=== PATIENT | female | born 1950 | race Caucasian/White ===

== ENCOUNTER 2023-09-11 00:49 | Inpatient (IN) | payer MEDICARE, OTHER ==
[2023-09-11] MEDS ORDERED: DILTIAZEM DRIP BOLUS FROM BAG 1 MG SOLN IV ONE (01:09)
[2023-09-11] MEDS ORDERED: DILTIAZEM 125 MG in SODIUM CHLORIDE 0.9% 100 ML IV SCH (01:15)
[2023-09-11 01:16] LABS: Basophils % (A) 0 %; Eosinophils # (A) 0.2 k/uL (0-0.7); Eosinophils % (A) 1 %; HCT 46.6 % (34.0-46.0); HGB 15.5 gm/dL (11.4-16.0); Lymphocytes # (A) 4.1 k/uL (1.0-4.8); Lymphocytes % (A) 26 %; MCH 34.8 pg (25.0-35.0); MCHC 33.3 g/dL (31.0-37.0); MCV 104.4 fL (80.0-100.0); Macrocytosis Slight; Mean Platelet Volume 7.7; Monocytes % (A) 6 %; Neutrophils % (A) 64 %; Platelet Count 432 k/uL (150-450); RBC 4.46 m/uL (3.80-5.40); RDW 12.2 % (11.5-15.5); WBC 15.7 k/uL (3.8-10.6)
[2023-09-11 01:43] LABS: INR 4.5 (<1.2); Partial Thromboplastin Time 34.5 sec (22.0-30.0); Prothrombin Time 43.8 sec (10.0-12.5)
--- NOTE | 2023-09-11 01:43 | ED ---
General Adult HPI - General Chief complaint: Chest Pain Stated complaint: Afib Time Seen by Provider: 09/11/23 00:51 Source: patient, EMS, RN notes reviewed, old records reviewed Mode of arrival: EMS Limitations: no limitations - History of Present Illness Initial comments: 72-year-old female presents for evaluation of chest pain and palpitations. Mercedes ent has history of atrial fibrillation. She is on metoprolol and Coumadin. She states she's been compliant with these medications. She states that she developed left-sided chest pain which lasted about 5 minutes with associated palpitations. She states that she did feel somewhat diaphoretic at the time. She's been having issues with palpitation and diaphoresis over the past several weeks. No chest pain at the time my evaluation. - Related Data Allergies Allergy/AdvReac Type Severity Reaction Status Date / Time Penicillins Allergy Rash/Hives Verified 09/11/23 00:57 Review of Systems ROS Statement: Those systems with pertinent positive or pertinent negative responses have been documented in the HPI. ROS Other: All systems not noted in ROS Statement are negative. Past Medical History Past Medical History: Atrial Fibrillation, COPD, Hypertension History of Any Multi-Drug Resistant Organisms: None Reported Past Surgical History: Tubal Ligation Past Psychological History: No Psychological Hx Reported Smoking Status: Current every day smoker Past Alcohol Use History: None Reported Past Drug Use History: None Reported General Exam Limitations: no limitations General appearance: alert, in no apparent distress Head exam: Present: atraumatic, normocephalic Eye exam: Present: normal appearance, PERRL Respiratory exam: Present: normal lung sounds bilaterally. Absent: respiratory distress, wheezes Cardiovascular Exam: Present: tachycardia, irregular rhythm GI/Abdominal exam: Present: soft. Absent: distended, tenderness Extremities exam: Present: normal inspection, normal capillary refill Neurological exam: Present: alert, oriented X3 Psychiatric exam: Present: normal affect, normal mood Skin exam: Present: warm Course Vital Signs 09/11/23 09/11/23 00:53 01:29 Temperature 98.5 F Pulse Rate 111 H 135 H Respiratory 20 20 Rate Blood Pressure 140/106 149/104 O2 Sat by Pulse 97 98 Oximetry Medical Decision Making - Medical Decision Making Was pt. sent in by a medical professional or institution (, PA, DIRECTOR OF CARDIAC REHABILITATION, urgent care, hospital, or residential...) When possible be specific @ -No Did you speak to anyone other than the patient for history (EMS, parent, family, police, friend...)? What history was obtained from this source @ -No Did you review nursing and triage notes (agree or disagree)? Why? @ -I reviewed and agree with nursing and triage notes Were old charts reviewed (outside hosp., previous admission, EMS record, old EKG, old radiological studies, urgent care reports/EKG's, residential records)? Report findings @ -No old charts were reviewed Differential Diagnosis (chest pain, altered mental status, abdominal pain women, abdominal pain men, vaginal bleeding, weakness, fever, dyspnea, syncope, headache, dizziness, GI bleed, back pain, seizure, CVA, palpatations, mental health, musculoskeletal)? @ Differential Palpitations Ventricular arrhythmias, atrial arrhythmias, myocardial infarction, anemia, thyrotoxicosis, electrolyte imbalance, hypokalemia, pulmonary embolism, pulmonary disease, drugs, alcohol, anxiety, stress.... This is not meant to be an all-inclusive list. EKG interpreted by me (3pts min.). @Atrial fibrillation with RVR rate of 124, QRS duration 80, QTC 366 low voltage, no ST segment elevation. X-rays interpreted by me (1pt min.). @ Chest x-ray negative for acute cardiopulmonary disease CT interpreted by me (1pt min.). @ -None done U/S interpreted by me (1pt. min.). @ -None done What testing was considered but not performed or refused? (CT, X-rays, U/S, labs)? Why? @ -None What meds were considered but not given or refused? Why? @ -None Did you discuss the management of the patient with other professionals (professionals i.e. , PA, DIRECTOR OF CARDIAC REHABILITATION, lab, RT, psych nurse, social sciences instructor, hotel or motel room service supervisor, teacher, medical corps officer, correctional case records supervisor)? Give summary @ -No Was smoking cessation discussed for >3mins.? @ -No Was critical care preformed (if so, how long)? @ -[ yes35 Were there social determinants of health that impacted care today? How? (Homelessness, low income, unemployed, alcoholism, drug addiction, transportation, low edu. Level, literacy, decrease access to med. care, assisted, rehab)? @ -No Was there de-escalation of care discussed even if they declined (Discuss DNR or withdrawal of care, Hospice)? DNR status @ -No What co-morbidities impacted this encounter? (DM, HTN, Smoking, COPD, CAD, Cancer, CVA, ARF, Chemo, Hep., AIDS, mental health diagnosis, sleep apnea, morbid obesity)? @ -A. fib Was patient admitted / discharged? Hospital course, mention meds given and route, prescriptions, significant lab abnormalities, going to OR and other pert inent info. @ -9-year-old female with history of atrial fibrillation presenting for evaluation of palpitations and an episode of chest pain. Pain resolved prior to arrival. Patient is in atrial fibrillation with RVR. She has a leukocytosis 15 increased secondary to the current steroids that the patient is taking for bronchitis. Chest x-ray is clear at this time. She has normal electrolytes. Negative troponin. Urinalysis has been ordered, results pending. Patient start ed on Cardizem in the emergency department. Her INR is elevated at 4.5, Coumadin will be held. She is admitted to internal medicine with cardiology on consult. Undiagnosed new problem with uncertain prognosis? @ -No Drug Therapy requiring intensive monitoring for toxicity (Heparin, Nitro, Insulin, Cardizem)? @ -No Were any procedures done? @ -No Diagnosis/symptom? @ Atrial fibrillation with RVR Acute, or Chronic, or Acute on Chronic? @ -Acute on chronic Uncomplicated (without systemic symptoms) or Complicated (systemic symptoms)? @ -default Side effects of treatment? @ -No Exacerbation, Progression, or Severe Exacerbation? @ -No Poses a threat to life or bodily function? How? (Chest pain, USA, SD, pneumonia, PE, COPD, DKA, ARF, appy, cholecystitis, CVA, Diverticulitis, Homicidal, Suicidal, threat to staff... and all critical care pts) @ Yes, arrhythmia - Lab Data Result diagrams: 09/11/23 01:06 09/11/23 01:06 Lab Results 09/11/23 09/11/23 09/11/23 Range/Units 01:06 01:06 01:06 WBC 15.7 H (3.8-10.6) k/uL RBC 4.46 (3.80-5.40) m/uL Hgb 15.5 (11.4-16.0) gm/dL Hct 46.6 H (34.0-46.0) % MCV 104.4 H (80.0-100.0) fL MCH 34.8 (25.0-35.0) pg MCHC 33.3 (31.0-37.0) g/dL RDW 12.2 (11.5-15.5) % Plt Count 432 (150-450) k/uL MPV 7.7 Neutrophils % 64 % Lymphocytes % 26 % Monocytes % 6 % Eosinophils % 1 % Basophils % 0 % Neutrophils # 10.0 H (1.3-7.7) k/uL Lymphocytes # 4.1 (1.0-4.8) k/uL Monocytes # 1.0 (0-1.0) k/uL Eosinophils # 0.2 (0-0.7) k/uL Basophils # 0.0 (0-0.2) k/uL Macrocytosis Slight PT 43.8 H (10.0-12.5) sec INR 4.5 H (<1.2) APTT 34.5 H (22.0-30.0) sec Sodium 135 L (137-145) mmol/L Potassium 4.9 (3.5-5.1) mmol/L Chloride 100 (98-107) mmol/L Carbon Dioxide 24 (22-30) mmol/L Anion Gap 11 mmol/L BUN 27 H (7-17) mg/dL Creatinine 0.96 (0.52-1.04) mg/dL Est GFR (CKD-EPI)AfAm 69 (>60 ml/min/1.73 sqM) Est GFR (CKD-EPI)NonAf 60 (>60 ml/min/1.73 sqM) Glucose 107 H (74-99) mg/dL Calcium 9.6 (8.4-10.2) mg/dL Magnesium 1.7 (1.6-2.3) mg/dL Total Bilirubin 0.8 (0.2-1.3) mg/dL AST 23 (14-36) U/L ALT 19 (4-34) U/L Alkaline Phosphatase 103 (38-126) U/L Troponin I (0.000-0.034) ng/mL Total Protein 7.7 (6.3-8.2) g/dL Albumin 4.4 (3.5-5.0) g/dL 09/11/23 Range/Units 01:06 WBC (3.8-10.6) k/uL RBC (3.80-5.40) m/uL Hgb (11.4-16.0) gm/dL Hct (34.0-46.0) % MCV (80.0-100.0) fL MCH (25.0-35.0) pg MCHC (31.0-37.0) g/dL RDW (11.5-15.5) % Plt Count (150-450) k/uL MPV Neutrophils % % Lymphocytes % % Monocytes % % Eosinophils % % Basophils % % Neutrophils # (1.3-7.7) k/uL Lymphocytes # (1.0-4.8) k/uL Monocytes # (0-1.0) k/uL Eosinophils # (0-0.7) k/uL Basophils # (0-0.2) k/uL Macrocytosis PT (10.0-12.5) sec INR (<1.2) APTT (22.0-30.0) sec Sodium (137-145) mmol/L Potassium (3.5-5.1) mmol/L Chloride (98-107) mmol/L Carbon Dioxide (22-30) mmol/L Anion Gap mmol/L BUN (7-17) mg/dL Creatinine (0.52-1.04) mg/dL Est GFR (CKD-EPI)AfAm (>60 ml/min/1.73 sqM) Est GFR (CKD-EPI)NonAf (>60 ml/min/1.73 sqM) Glucose (74-99) mg/dL Calcium (8.4-10.2) mg/dL Magnesium (1.6-2.3) mg/dL Total Bilirubin (0.2-1.3) mg/dL AST (14-36) U/L ALT (4-34) U/L Alkaline Phosphatase (38-126) U/L Troponin I <0.012 (0.000-0.034) ng/mL Total Protein (6.3-8.2) g/dL Albumin (3.5-5.0) g/dL Disposition Clinical Impression: Atrial fibrillation with RVR, Chest pain Disposition: ADMITTED IP TO THIS HOSP Condition: Stable Is patient prescribed a controlled substance at d/c from ED?: No Time of Disposition: 03:08
[2023-09-11 02:52] LABS: ALT 19 U/L (4-34); AST 23 U/L (14-36); African American GFR (CKD) 69 (>60 ml/min/1.73 sqM); Albumin 4.4 g/dL (3.5-5.0); Alkaline Phosphatase 103 U/L (38-126); Anion Gap 11 mmol/L; Blood Urea Nitrogen 27 mg/dL (7-17); Calcium 9.6 mg/dL (8.4-10.2); Carbon Dioxide 24 mmol/L (22-30); Chloride 100 mmol/L (98-107); Glucose 107 mg/dL (74-99); Magnesium 1.7 mg/dL (1.6-2.3); Non-African American GFR(CKD) 60 (>60 ml/min/1.73 sqM); Potassium 4.9 mmol/L (3.5-5.1); Sodium 135 mmol/L (137-145); Total Bilirubin 0.8 mg/dL (0.2-1.3); Total Protein 7.7 g/dL (6.3-8.2)
[2023-09-11] MEDS ORDERED: NALOXONE 0.4 MG/ML 1 ML VIAL IV PRN (02:55)
[2023-09-11] MEDS ORDERED: ACETAMINOPHEN TAB 325 MG TAB PO PRN (02:55)
--- NOTE | 2023-09-11 02:59 | XR ---
EXAM: XR Chest, 2 Views CLINICAL HISTORY: ITS.REASON XR Reason: Chest Pain TECHNIQUE: Frontal and lateral views of the chest. COMPARISON: No relevant prior studies available. FINDINGS: Lungs: No consolidation or mass. Pleural space: No effusion. Heart: No cardiomegaly. Bones/joints: No acute findings. IMPRESSION: No acute cardiopulmonary process.
[2023-09-11 04:42] LABS: Appearance,Urine Clear (Clear); Bilirubin,Urine Negative (Negative); Blood,Urine Negative (Negative); Color,Urine Colorless; Glucose,Urine (UA) Negative (Negative); Ketones,Urine Negative (Negative); Leukocyte Esterase,Urine Negative (Negative); Nitrite,Urine Negative (Negative); PH, Urine 6.5 (5.0-8.0); Protein,Urine Negative (Negative); Specific Gravity,Urine 1.008 (1.001-1.035); Urobilinogen,Urine <2.0 mg/dL (<2.0)
[2023-09-11] MEDS ORDERED: METOPROLOL TARTRATE 12.5 MG TAB PO SCH (09:45)
[2023-09-11] MEDS ORDERED: WARFARIN 7.5 MG TAB PO SCH (09:45)
[2023-09-11] MEDS: CITALOPRAM HYDROBROMIDE 20 MG TAB PO SCH (10:17)
--- NOTE | 2023-09-11 13:07 | P.HPIM ---
History of Present Illness H&P Date: 09/11/23 Chief Complaint: Heart racing This is a pleasant 72-year-old patient follows with Dr. Aguilar. Patient presented yesterday with a heart racing broke out in a certain clammy. Orange anxious. Some shortness of breath. Presented to the ER. Found to be in atrial fibrillation with rapid ventricular rate. Was started on a Cardizem drip. This morning heart rate is better controlled in the 80s. Patient is feeling a bit better. Patient has some underlying wheezing and slight cough. Long-standing smoker. No chest pain. No fever no chills. Patient has known atrial fibril lation. On Coumadin. On Lopressor. Review of systems: GEN.: Tired EYES: None HEENT: None NECK: None RESPIRATORY: Occasional cough wheezing CARDIOVASCULAR: As above GASTROINTESTINAL: None GENITOURINARY: None MUSCULOSKELETAL: Joint pains LYMPHATICS: None HEMATOLOGICAL: None PSYCHIATRY: None NEUROLOGICAL: None Past medical history to include: Atrophic ablation, COPD, hypertension, depression, osteoarthritis Social history: Lives alone. Has been smoking for 55 years. Currently down to about a quarter pack a day. Alcohol rarely. Physical examination: VITAL SIGNS: 98.5, 135, 20, 140/106, 97% room air upon presentation GENERAL: BMI 36.9, declining but awake not in distress. EYES: Pupils equal. Conjunctiva normal. HEENT: External appearance of nose and ears normal, oral cavity grossly normal. NECK: JVD not raised; masses not palpable. HEART: Heart sounds irregular no edema. LUNGS: Respiratory rate increased; his bedsore mild wheezing. ABDOMEN: Soft, nontender, liver spleen not palpable, no masses palpable. PSYCH: Alert and oriented x3; mood and affect normal. MUSCULOSKELETAL:No Clubbing/cyanosis;muscles-grossly intact. OA NEUROLOGICAL: Cranial nerves grossly intact; no facial asymmetry, power and sensation grossly intact. LYMPHATICS: No lymph nodes palpable in the axilla and neck INVESTIGATIONS, reviewed in the clinical context: September 11: White count 15.7 hemoglobin 15.5 platelets 432 INR 4.5 sodium 135 potassium 4.9 BUN 27 creatinine 0.96 Troponin I less than 0.012 TSH 2.3 UA: Negative EKG tracing personally reviewed by me-atrial flutter fibrillation: Rate 124 Chest x-ray film personally reviewed by me-cardiomegaly Assessment and plan: -Persistent atrial fibrillation now presenting with rapid ventricular rate, symptomatic Started IV Cardizem drip. Continue Lopressor. On Coumadin. Telemetry. Cardiology consulted -COPD in a current smoker Albuterol when necessary -Chronic nicotine dependence, cigarette smoker Nicotine patch 7 -Coumadin monitoring Pharmacy to dose -Essential hypertension Lopressor -Depression Celexa -Primary osteoarthritis Tylenol as needed -Full code Care was discussed with the patient. Questions answered. Past Medical History Past Medical History: Atrial Fibrillation, COPD, Hypertension History of Any Multi-Drug Resistant Organisms: None Reported Past Surgical History: Tubal Ligation Past Psychological History: No Psychological Hx Reported Smoking Status: Current every day smoker Past Alcohol Use History: None Reported Past Drug Use History: None Reported Medications and Allergies Home Medications Medication Instructions Recorded Confirmed Type Albuterol Sulfate [Albuterol 1 - 2 puff PO RT-Q6H PRN 09/11/23 09/11/23 History Sulfate Hfa] Citalopram Hydrobromide 20 mg PO DAILY 09/11/23 09/11/23 History [Citalopram HBr] Metoprolol Tartrate [Lopressor] 12.5 mg PO BID 09/11/23 09/11/23 History Rosuvastatin Calcium 10 mg PO HS 09/11/23 09/11/23 History Warfarin Sodium 3.75 mg PO SUMOTUWEFRSA 09/11/23 09/11/23 History lisinopriL [Prinivil] 10 mg PO DAILY 09/11/23 09/11/23 History Allergies Allergy/AdvReac Type Severity Reaction Status Date / Time Penicillins Allergy Rash/Hives/facial Verified 09/11/23 08:00 swelling Physical Exam Vitals: Vital Signs Temp Pulse Resp BP Pulse Ox 09/11/23 07:52 98 F 104 H 16 106/74 95 09/11/23 06:00 78 20 111/75 95 09/11/23 05:30 84 22 115/74 94 L 09/11/23 05:00 89 20 123/96 95 09/11/23 04:30 90 20 127/79 96 09/11/23 04:00 74 20 127/79 95 09/11/23 03:30 81 20 113/76 95 09/11/23 03:00 81 20 109/78 95 09/11/23 02:30 107 H 20 109/78 95 09/11/23 02:00 114 H 20 129/83 95 09/11/23 01:29 135 H 20 149/104 98 09/11/23 00:53 98.5 F 111 H 20 140/106 97 Intake and Output 09/10/23 09/11/23 09/11/23 22:59 06:59 14:59 Other: Weight 97.522 kg Results CBC & Chem 7: 09/11/23 01:06 09/11/23 01:06 Labs: Abnormal Lab Results - Last 24 Hours (Table) 09/11/23 09/11/23 09/11/23 Range/Units 01:06 01:06 01:06 WBC 15.7 H (3.8-10.6) k/uL Hct 46.6 H (34.0-46.0) % MCV 104.4 H (80.0-100.0) fL Neutrophils # 10.0 H (1.3-7.7) k/uL PT 43.8 H (10.0-12.5) sec INR 4.5 H (<1.2) APTT 34.5 H (22.0-30.0) sec Sodium 135 L (137-145) mmol/L BUN 27 H (7-17) mg/dL Glucose 107 H (74-99) mg/dL
[2023-09-11] MEDS: NICOTINE 7MG/24HR PATCH TRANSDERM SCH ×2 (13:35→13:39)
[2023-09-11] MEDS ORDERED: METOPROLOL TARTRATE 12.5 MG TAB PO STA (17:07)
--- NOTE | 2023-09-11 17:10 | P.CRDCN ---
History of Present Illness Consult date: 09/11/23 Consult reason: atrial fibrillation (With RVR) History of present illness: History of present illness: This is a 72 year old female with past medical history of COPD, hypertension, chronic atrial fibrillation, active tobacco use and dependence. She denies history of diabetes. Patient presented to the hospital due to chest pain, sweats and clamminess. She states she was laying in bed with onset. Since that her chest pain has resolved. It was a shooting type pain with no radiation. She gives history of cardiac catheterization 2 years ago with no stent done. This was at [facility]. Patient has been started on Cardizem drip. Heart rate is currently controlled. Blood pressure 126/76. Patient states that she is smoking 6-7 cigarettes per day. EKG A. fib with RVR at 124 bpm Chest x-ray: No acute process WBC 15.7, hemoglobin 15.5, platelet count 432. INR 4.5. Sodium 135, potassium 4.9, BUN 27, creatinine 0.96. Troponin negative 2. Urinalysis negative. TSH 2.38. Home cardiac medications: Lisinopril 10 mg daily, Lopressor 12.5 mg twice daily, rosuvastatin 10 mg at bedtime, Coumadin 3.75 mg daily Review Of Systems: At the time of my evaluation: Constitutional: No fever, no chills. No weakness, fatigue or lethargy. EENT: No headache. No dizziness. Lungs: No shortness of breath, cough, no sputum production. No wheezing. Cardiovascular: No chest pain, no lower extremity edema. No palpitations. No paroxysmal nocturnal dyspnea. No orthopnea. No lightheadedness or dizziness. No syncopal episodes. Abdominal: No abdominal pain. No nausea, vomiting. No diarrhea. No constipation. No bloody or tarry stools. Genitourinary: No dysuria.. No urinary retention. Musculoskeletal: No myalgias. No muscle weakness, no frequent falls. No back pain. No neck pain. Integumentary: No wounds. No rash. No unusual bruising. Neurologic: No aphasia. No facial droop. No change in mentation. No head injury. No headache. Physical examination: Gen: This is a 72-year-old female. She is resting on the ER stretcher and appears to be comfortable and in no acute distress. VS: reviewed HEENT: Head is atraumatic, normocephalic. Pupils equal, round. Sclerae is anicteric. NECK: Supple. No JVD. . LUNGS: Clear to auscultation. No wheezes or rhonchi. No intercostal retractions. HEART: Irregular rate and rhythm. ABDOMEN: Soft No tenderness. EXTREMITIES: No pedal edema. No calf tenderness. NEUROLOGICAL: Patient is awake, alert and oriented x3. Assessment: Chronic atrial fibrillation with RVR Chest pain possibly related to A. fib with RVR COPD Hypertension Active tobacco use and dependence Plan: Continue patient's home cardiac medications Increase Lopressor to 25 mg twice daily Discontinue Cardizem drip Pharmacy to dose Coumadin Complete troponins Obtain cardiac catheterization report from [facility] done 2 years ago Obtain 2-D echocardiogram and Doppler study to assess cardiac structure and function Further recommendations to follow based upon clinical course Thank you kindly for this consultation. Nurse practitioner note has been reviewed, I agree with documented findings and plan of care. Patient was seen and examined. Past Medical History Past Medical History: Atrial Fibrillation, COPD, Hypertension History of Any Multi-Drug Resistant Organisms: None Reported Past Surgical History: Tubal Ligation Past Psychological History: No Psychological Hx Reported Smoking Status: Current every day smoker Past Alcohol Use History: None Reported Past Drug Use History: None Reported Medications and Allergies Home Medications Medication Instructions Recorded Confirmed Type Albuterol Sulfate [Albuterol 1 - 2 puff PO RT-Q6H PRN 09/11/23 09/11/23 History Sulfate Hfa] Citalopram Hydrobromide 20 mg PO DAILY 09/11/23 09/11/23 History [Citalopram HBr] Metoprolol Tartrate [Lopressor] 12.5 mg PO BID 09/11/23 09/11/23 History Rosuvastatin Calcium 10 mg PO HS 09/11/23 09/11/23 History Warfarin Sodium 3.75 mg PO SUMOTUWEFRSA 09/11/23 09/11/23 History lisinopriL [Prinivil] 10 mg PO DAILY 09/11/23 09/11/23 History Allergies Allergy/AdvReac Type Severity Reaction Status Date / Time Penicillins Allergy Rash/Hives/facial Verified 09/11/23 08:00 swelling Physical Exam Vitals: Vital Signs Temp Pulse Resp BP Pulse Ox 09/11/23 13:37 78 16 113/71 96 09/11/23 11:29 64 18 113/74 94 L 09/11/23 10:04 77 16 09/11/23 07:52 98 F 104 H 16 106/74 95 09/11/23 06:00 78 20 111/75 95 09/11/23 05:30 84 22 115/74 94 L 09/11/23 05:00 89 20 123/96 95 09/11/23 04:30 90 20 127/79 96 09/11/23 04:00 74 20 127/79 95 09/11/23 03:30 81 20 113/76 95 09/11/23 03:00 81 20 109/78 95 09/11/23 02:30 107 H 20 109/78 95 09/11/23 02:00 114 H 20 129/83 95 09/11/23 01:29 135 H 20 149/104 98 09/11/23 00:53 98.5 F 111 H 20 140/106 97 Intake and Output 09/10/23 09/11/23 09/11/23 22:59 06:59 14:59 Other: Weight 97.522 kg Results 09/11/23 01:06 09/11/23 01:06 Cardiac Enzymes 09/11/23 09/11/23 Range/Units 01:06 01:06 AST 23 (14-36) U/L Troponin I <0.012 (0.000-0.034) ng/mL Coagulation 09/11/23 Range/Units 01:06 PT 43.8 H (10.0-12.5) sec APTT 34.5 H (22.0-30.0) sec CBC 09/11/23 Range/Units 01:06 WBC 15.7 H (3.8-10.6) k/uL RBC 4.46 (3.80-5.40) m/uL Hgb 15.5 (11.4-16.0) gm/dL Hct 46.6 H (34.0-46.0) % Plt Count 432 (150-450) k/uL Comprehensive Metabolic Panel 09/11/23 Range/Units 01:06 Sodium 135 L (137-145) mmol/L Potassium 4.9 (3.5-5.1) mmol/L Chloride 100 (98-107) mmol/L Carbon Dioxide 24 (22-30) mmol/L BUN 27 H (7-17) mg/dL Creatinine 0.96 (0.52-1.04) mg/dL Glucose 107 H (74-99) mg/dL Calcium 9.6 (8.4-10.2) mg/dL AST 23 (14-36) U/L ALT 19 (4-34) U/L Alkaline Phosphatase 103 (38-126) U/L Total Protein 7.7 (6.3-8.2) g/dL Albumin 4.4 (3.5-5.0) g/dL Current Medications Generic Name Dose Route Start Last Admin Trade Name Freq PRN Reason Stop Dose Admin Acetaminophen 650 mg 09/11/23 02:55 Acetaminophen Tab 325 Mg Tab PO Q6HR PRN Mild Pain or Fever > 100.5 Atorvastatin Calcium 20 mg 09/11/23 21:00 Atorvastatin 20 Mg Tab PO HS LOVE Citalopram Hydrobromide 20 mg 09/11/23 09:45 09/11/23 10:17 Citalopram Hydrobromide 20 Mg Tab PO 20 mg DAILY LOVE Administration Diltiazem HCl 125 mg/ Sodium 125 mls @ 5 mls/hr 09/11/23 01:15 09/11/23 01:26 Chloride IV 5 mg/hr .Q24H LOVE 5 mls/hr Administration 5 MG/HR Metoprolol Tartrate 12.5 mg 09/11/23 09:45 09/11/23 10:17 Metoprolol Tartrate 12.5 Mg Tab PO 12.5 mg BID LOVE Administration Miscellaneous Information 0 each 09/11/23 09:52 Warfarin Per Pharmacy MISCELLANE DIRECTED PRN A FIB Naloxone HCl 0.2 mg 09/11/23 02:55 Naloxone 0.4 Mg/Ml 1 Ml Vial IV Q2M PRN Opioid Reversal Nicotine 1 patch 09/11/23 13:15 09/11/23 13:39 Nicotine 7mg/24hr Patch TRANSDERM Not Given DAILY LOVE Warfarin Sodium 0 mg 09/11/23 18:00 Warfarin 0.5 Mg Tab PO 09/11/23 18:01 ONCE@1800 ONE Intake and Output 09/10/23 09/11/23 09/11/23 22:59 06:59 14:59 Other: Weight 97.522 kg 09/11/23 01:06 09/11/23 01:06
[2023-09-11] MEDS ORDERED: WARFARIN 0.5 MG TAB PO ONE (18:00)
[2023-09-11] MEDS ORDERED: ZINC OXIDE PASTE (Z-GUARD) 1 APPLIC APPLIC TOPICAL PRN (18:46)
[2023-09-11] MEDS ORDERED: ALBUTEROL HFA INHALER INHALATION PRN (19:18)
[2023-09-11] MEDS: METOPROLOL TARTRATE 25 MG TAB PO SCH (20:43)
[2023-09-11] MEDS: ATORVASTATIN 20 MG TAB PO SCH (20:43)
[2023-09-12 08:44] LABS: INR 3.1 (<1.2); Prothrombin Time 30.3 sec (10.0-12.5)
[2023-09-12] MEDS: METOPROLOL TARTRATE 25 MG TAB PO SCH ×2 (09:19→20:20)
[2023-09-12] MEDS: CITALOPRAM HYDROBROMIDE 20 MG TAB PO SCH (09:19)
[2023-09-12] MEDS: NICOTINE 7MG/24HR PATCH TRANSDERM SCH ×2 (09:19→09:21)
--- NOTE | 2023-09-12 11:10 | CA ---
Transthoracic Echo Report Name: Nori Sawant Age: 72 Gender: F : 1950 Exam Date: 09/12/2023 08:31 Exam Location: [place] [facility] Ht (in): 64 Wt (lb): 215 Ordering Physician: Scar Hardy MD Attending/Referring Phys: Wire Rope Sling Maker Caryn Wattesr RDCS Procedure CPT: Indications: atrial fibrillation Cardiac Hx: Technical Quality: Technically difficult study Contrast 1: Definity Total Dose (mL): 1 Contrast 2: Total Dose (mL): MEASUREMENTS (Male / Female) Normal Values 2D ECHO LV Diastolic Diameter PLAX 5.5 cm 4.2 - 5.9 / 3.9 - 5.3 cm LV Systolic Diameter PLAX 3.8 cm IVS Diastolic Thickness 1.1 cm 0.6 - 1.0 / 0.6 - 0.9 cm LVPW Diastolic Thickness 1.1 cm 0.6 - 1.0 / 0.6 - 0.9 cm LV Relative Wall Thickness 0.4 RV Internal Dim ED PLAX 3.5 cm LA Systolic Diameter LX 4.0 cm 3.0 - 4.0 / 2.7 - 3.8 cm LV Diastolic Volume MOD 4C 72.3 cm??? LV Systolic Volume MOD 4C 36.3 cm??? LV Ejection Fraction MOD 4C 49.8 % LV Cardiac Index MOD 4C 1443.7 cm???/min???m??? LV Diastolic Length 4C 6.8 cm LV Systolic Length 4C 5.8 cm LA Volume 69.8 cm??? 18 - 58 / 22 - 52 cm??? LA Volume Index 32.5 cm???/m??? 16 - 28 cm???/m??? M-MODE Aortic Root Diameter MM 2.9 cm MV E Point Septal Separation 0.9 cm AV Cusp Separation MM 1.8 cm DOPPLER AV Peak Velocity 108.5 cm/s AV Peak Gradient 4.7 mmHg MV Area PHT 5.4 cm??? MV Deceleration Time 165.4 ms TR Peak Velocity 257.5 cm/s TR Peak Gradient 26.5 mmHg Right Ventricular Systolic Press 31.5 mmHg FINDINGS Left Ventricle Left ventricular ejection fraction is estimated at 35-40 %. Mildly increased septal wall thickness. Mildly increased posterior wall thickness. Mildly increased left ventricular diastolic diameter. Right Ventricle Mild right ventricular dilatation. Right ventricular systolic pressure within normal limits. Right Atrium Right atrium not well visualized. Left Atrium Mildly increased left atrial diameter. Mildly increased left atrial volume. Mildly increased left atrial area. Mitral Valve No mitral stenosis, regurgitation or prolapse. Aortic Valve Trileaflet aortic valve. No aortic valve stenosis or regurgitation. Tricuspid Valve Structurally normal tricuspid valve. Mild tricuspid regurgitation. Pulmonic Valve Pulmonic valve not well visualized. Pericardium Small pericardial effusion by apex Aorta Normal size aortic root and proximal ascending aorta. CONCLUSIONS Moderate LV systolic dysfunction with an ejection fraction of 35-40% Mild tricuspid regurgitation Small pericardial effusion Previewed by: Dr. Giovanny Serna MD (Electronically Signed) Final Date: 12 September 2023 11:09
[2023-09-12] MEDS ORDERED: NITROGLYCERIN SL TABS 0.4 MG TAB SUBLINGUAL PRN (14:29)
[2023-09-12] MEDS ORDERED: ALPRAZolam 0.25 MG TAB PO PRN (14:29)
[2023-09-12] MEDS ORDERED: ALPRAZolam 0.5 MG TAB PO PRN (14:29)
--- NOTE | 2023-09-12 14:35 | P.PN ---
Subjective Progress Note Date: 09/12/23 History of present illness: This is a 72 year old female with past medical history of COPD, hypertension, chronic atrial fibrillation, active tobacco use and dependence. She denies history of diabetes. Patient presented to the hospital due to chest pain, sweats and clamminess. She states she was laying in bed with onset. Since that her chest pain has resolved. It was a shooting type pain with no radiation. She gives history of cardiac catheterization 2 years ago with no stent done. This was at [facility]. Patient has been started on Cardizem drip. Heart rate is currently controlled. Blood pressure 126/76. Patient states that she is smoking 6-7 cigarettes per day. EKG A. fib with RVR at 124 bpm Chest x-ray: No acute process WBC 15.7, hemoglobin 15.5, platelet count 432. INR 4.5. Sodium 135, potassium 4.9, BUN 27, creatinine 0.96. Troponin negative 2. Urinalysis negative. TSH 2.38. Home cardiac medications: Lisinopril 10 mg daily, Lopressor 12.5 mg twice daily, rosuvastatin 10 mg at bedtime, Coumadin 3.75 mg daily 09/12 Reviewed records from [facility]: Echocardiogram performed to revealed EF of 55-60% She states that she had some shooting pain in her chest last evening. None at this time. No shortness of breath, no lightheadedness or dizziness. Echocardiogram reveals EF of 35-40%, mild tricuspid regurgitation, small pericardial effusion. Blood pressure 118/68, afebrile, heart rate 70s and 80s. INR is 3.1, pharmacy is dosing Coumadin. Due to new cardiomyopathy, patient is agreeable to undergo cardiac catheterization tomorrow. Physical examination: Gen: This is a 72-year-old female. She is resting in bed and appears to be comfortable and in no acute distress. VS: reviewed HEENT: Head is atraumatic, normocephalic. Pupils equal, round. Sclerae is anicteric. LUNGS: Clear to auscultation. No wheezes or rhonchi. No intercostal retractions. HEART: Irregular rate and rhythm. ABDOMEN: Soft No tenderness. EXTREMITIES: No pedal edema. No calf tenderness. NEUROLOGICAL: Patient is awake, alert and oriented x3. Assessment: Chronic atrial fibrillation with RVR Chest pain possibly related to A. fib with RVR COPD Hypertension Active tobacco use and dependence Cardiomyopathy of unclear etiology Plan: Continue patient's home cardiac medications Continue Lopressor to 25 mg twice daily Hold Coumadin for tonight Recheck INR in the morning Nothing by mouth after midnight Patient will be scheduled for cardiac catheterization tomorrow with Dr. Irvin Further recommendations to follow based upon clinical course Thank you kindly for this consultation. Nurse practitioner note has been reviewed, I agree with documented findings and plan of care. Patient was seen and examined. Objective - Vital Signs Vital signs: Vital Signs Temp 98.5 F 09/12/23 04:00 Pulse 87 09/12/23 04:00 Resp 17 09/12/23 04:00 BP 102/63 09/12/23 04:00 Pulse Ox 100 09/12/23 04:00 FiO2 Intake & Output 09/11/23 09/12/23 09/12/23 18:59 06:59 18:59 Intake Total 80.417 0 118 Balance 80.417 0 118 Weight 97.522 kg Intake: Intake, IV Titration 80.417 Amount Diltiazem 125 mg In 80.417 Sodium Chloride 0.9% 100 ml @ 5 MG/HR 5 mls/hr IV .Q24H [facility] Rx#:[id number] Oral 0 118 Other: Voiding Method Toilet # Voids 1 - Labs CBC & Chem 7: 09/11/23 01:06 09/11/23 01:06 Labs: Abnormal Lab Results - Last 24 Hours (Table) 09/12/23 Range/Units 07:57 PT 30.3 H (10.0-12.5) sec INR 3.1 H (<1.2)
--- NOTE | 2023-09-12 15:04 | P.PN ---
Subjective Progress Note Date: 09/12/23 This is a pleasant 72-year-old patient follows with Dr. Aguilar. Patient presented yesterday with a heart racing broke out in a certain clammy. [place] anxious. Some shortness of breath. Presented to the ER. Found to be in atrial fibrillation with rapid ventricular rate. Was started on a Cardizem drip. This morning heart rate is better controlled in the 80s. Patient is feeling a bit better. Patient has some underlying wheezing and slight cough. Long-standing smoker. No chest pain. No fever no chills. Patient has known atrial fibrillation. On Coumadin. On Lopressor. 09/12/2023 Patient today continues to have intermittent episodes of chest pain sharp on the left side, no radiation and does spontaneously resolve. Then feels clammy and sweaty afterwards. In atrial fibrillation. Reports received from cardiac catheterization back in 2017 out of [facility] which reveals an EF 50% and minimal atherosclerotic disease. Echocardiogram f/u this admission reveals an EF of 35-40% with mild TR and small pericardial effusion. INR of 3.1 today. Troponin level negative x 3. Pending cardiology recommendations Review of Systems Constitutional: Denied any fatigue denied any fever. Cardio vascular: Intermittent left sided chest pain, palpitations Gastrointestinal: Denied any nausea, vomiting, diarrhea Pulmonary: Denied any shortness of breath cough Neurologic denied any new focal deficits All inpatient medications were reviewed and appropriate changes in these medications as dictated in the interval history and assessment and plan. PHYSICAL EXAMINATION: GENERAL: The patient is alert and oriented x3, not in any acute distress. Well developed, well nourished. HEENT: Pupils are round and equally reacting to light. EOMI. No scleral icterus. No conjunctival pallor. Normocephalic, atraumatic. No pharyngeal erythema. No thyromegaly. CARDIOVASCULAR: S1 and S2 present. No murmurs, rubs, or gallops. PULMONARY: Chest is clear to auscultation, no wheezing or crackles. ABDOMEN: Soft, nontender, nondistended, normoactive bowel sounds. No palpable organomegaly. MUSCULOSKELETAL: No joint swelling or deformity. EXTREMITIES: No cyanosis, clubbing, or pedal edema. NEUROLOGICAL: Gross neurological examination did not reveal any focal deficits. SKIN: No rashes. Assessment -Persistent atrial fibrillation with RVR, off cardizem gtt and on oral lopression -COPD Hx -Cardiomyopathy of unclear etiology -Chronic nicotine dependence, cigarette smoker -Coumadin monitoring -Essential hypertension -Depression -Primary osteoarthritis -Full code GI prophylaxis DVT prophylaxis Full Code Plan Continue on warfarin, daily PT/INR Pending cardiology recommendations Patient likely will need cardiac catheterization The impression and plan of care has been dictated by Val Raymond, Nurse Practitioner as directed. Dr. Raz MD I have performed a history and physical examination and medical decision making of this patient, discussed the same with the dictator, and agree with the dictators assessment and plan as written, documented as a scribe. Based on total visit time, I have performed more than 50% of this visit. Objective - Vital Signs Vital signs: Vital Signs Temp 98.5 F 09/12/23 04:00 Pulse 87 09/12/23 04:00 Resp 17 09/12/23 04:00 BP 102/63 09/12/23 04:00 Pulse Ox 100 09/12/23 04:00 FiO2 Intake & Output 09/11/23 09/12/23 09/12/23 18:59 06:59 18:59 Intake Total 80.417 0 118 Balance 80.417 0 118 Weight 97.522 kg Intake: Intake, IV Titration 80.417 Amount Diltiazem 125 mg In 80.417 Sodium Chloride 0.9% 100 ml @ 5 MG/HR 5 mls/hr IV .Q24H [facility] Rx#:[id number] Oral 0 118 Other: Voiding Method Toilet # Voids 1 - Labs CBC & Chem 7: 09/11/23 01:06 09/11/23 01:06 Labs: Abnormal Lab Results - Last 24 Hours (Table) 09/12/23 Range/Units 07:57 PT 30.3 H (10.0-12.5) sec INR 3.1 H (<1.2) Assessment and Plan Time with Patient: Less than 30
[2023-09-12] MEDS ORDERED: WARFARIN 1 MG TAB PO ONE (18:00)
[2023-09-12] MEDS: ATORVASTATIN 20 MG TAB PO SCH (20:20)
[2023-09-13] MEDS ORDERED: ATORVASTATIN 80 MG TAB PO ONE (06:00)
[2023-09-13] MEDS ORDERED: ASPIRIN 325 MG TAB PO ONE (06:00)
[2023-09-13] MEDS: CITALOPRAM HYDROBROMIDE 20 MG TAB PO SCH (06:18)
[2023-09-13] MEDS: METOPROLOL TARTRATE 25 MG TAB PO SCH ×2 (06:19→20:09)
[2023-09-13 06:55] LABS: Basophils % (A) 0 %; Eosinophils # (A) 0.4 k/uL (0-0.7); Eosinophils % (A) 5 %; HCT 43.9 % (34.0-46.0); HGB 14.4 gm/dL (11.4-16.0); Lymphocytes # (A) 3.1 k/uL (1.0-4.8); Lymphocytes % (A) 36 %; MCH 34.2 pg (25.0-35.0); MCHC 32.8 g/dL (31.0-37.0); MCV 104.3 fL (80.0-100.0); Macrocytosis Slight; Mean Platelet Volume 7.5; Monocytes # (A) 0.6 k/uL (0-1.0); Monocytes % (A) 7 %; Neutrophils # (A) 4.4 k/uL (1.3-7.7); Neutrophils % (A) 50 %; Platelet Count 389 k/uL (150-450); RBC 4.21 m/uL (3.80-5.40); WBC 8.8 k/uL (3.8-10.6)
[2023-09-13] MEDS ORDERED: HEPARIN SODIUM,PORCINE 10,000 UNIT in SODIUM CHLORIDE 0.9% 1,000 ML IRRIGATION PRN (07:00)
[2023-09-13] MEDS ORDERED: HEPARIN SODIUM,PORCINE (1 ML) 2,500 UNIT in SODIUM CHLORIDE 0.9% 250 ML IRRIGATION PRN (07:00)
[2023-09-13 07:11] LABS: African American GFR (CKD) 73 (>60 ml/min/1.73 sqM); Anion Gap 9 mmol/L; Blood Urea Nitrogen 25 mg/dL (7-17); Calcium 8.9 mg/dL (8.4-10.2); Carbon Dioxide 25 mmol/L (22-30); Chloride 103 mmol/L (98-107); Glucose 99 mg/dL (74-99); Non-African American GFR(CKD) 64 (>60 ml/min/1.73 sqM); Potassium 4.6 mmol/L (3.5-5.1); Sodium 137 mmol/L (137-145)
--- NOTE | 2023-09-13 07:19 | P.PN ---
Subjective Progress Note Date: 09/13/23 Principal diagnosis: Atrial fibrillation/cardiomyopathy The patient is a pleasant 72-year-old female patient with a past medical history significant for permanent atrial fibrillation and chronic obstructive pulmonary disease as well as multiple comorbid conditions including recently diagnosed cardiomyopathy was admitted to the hospital with a chest discomfort and underwent a workup including an echo and that revealed cardiomyopathy which is new to the patient. September [id number] She was seen and evaluated this morning. She is asymptomatic at this point. The plan is to proceed with coronary angiogram to rule out severe underlying coronary artery disease. INR still pending. She was on Coumadin and the INR yesterday was intubated. We'll follow-up with the INR and procedures coronary angiogram if the INR is low. The examination is remarkable for irregular rhythm with a clear breathing sounds bilaterally and no lower extremities edema noted Assessment Permanent atrial fibrillation with controlled heart rate New diagnosis of cardiomyopathy Multiple comorbid conditions Plan Follow-up with the INR Proceed with coronary angiogram Further recommendation to follow Objective - Vital Signs Vital signs: Vital Signs Temp 98.0 F 09/12/23 16:00 Pulse 82 09/13/23 04:00 Resp 18 09/13/23 04:00 BP 112/62 09/13/23 04:00 Pulse Ox 96 09/13/23 04:00 FiO2 Intake & Output 09/12/23 09/13/23 09/13/23 18:59 06:59 18:59 Intake Total 236 Balance 236 Intake: Oral 236 Other: Voiding Method Toilet Toilet # Voids 5 1 # Bowel Movements 1 - Labs CBC & Chem 7: 09/13/23 06:25 09/13/23 06:25 Labs: Abnormal Lab Results - Last 24 Hours (Table) 09/12/23 09/13/23 09/13/23 Range/Units 07:57 06:25 06:25 MCV 104.3 H (80.0-100.0) fL PT 30.3 H (10.0-12.5) sec INR 3.1 H (<1.2) BUN 25 H (7-17) mg/dL
[2023-09-13 07:22] LABS: INR 1.9 (<1.2); Prothrombin Time 18.7 sec (10.0-12.5)
[2023-09-13] MEDS ORDERED: PHYTONADIONE ORAL 5 MG/5 ML ORAL.SYRG PO STA (08:06)
[2023-09-13] MEDS: NICOTINE 7MG/24HR PATCH TRANSDERM SCH (08:28)
[2023-09-13 10:07] LABS: INR 1.8 (<1.2); Prothrombin Time 18.2 sec (10.0-12.5)
[2023-09-13] MEDS ORDERED: VERAPAMIL 2.5 MG/ML 2 ML AMP ONE (11:54)
[2023-09-13] MEDS ORDERED: HEPARIN SODIUM 1,000 UN/ML (10ML VL) ONE (13:00)
[2023-09-13] MEDS ORDERED: MIDAZOLAM 2 MG/2 ML VIAL IVP ONE (13:06)
[2023-09-13] MEDS ORDERED: IV FLUID CONTINUATION 1,000 ML IV ONE (13:07)
[2023-09-13] MEDS ORDERED: LIDOCAINE 1% INJ 10MG/ML (30 ML VIAL-PF) SQ ONE (13:10)
[2023-09-13] MEDS ORDERED: VERAPAMIL SYRINGE (5 MG/10 ML) INTRAARTER ONE (13:11)
[2023-09-13] MEDS ORDERED: IOPAMIDOL-370 100ML BTL INJ ONE (13:19)
[2023-09-13] MEDS ORDERED: RX INFO: IV CONTRAST WAS GIVEN 1 EACH MISC MISCELLANE PRN (13:20)
--- NOTE | 2023-09-13 13:23 | P.PCN ---
Date of Procedure: 09/13/23 Operative Findings: CARDIAC CATHETERIZATION PERFORMING PHYSICIAN: Cruzito Irvin MD, RPVI PROCEDURE PERFORMED: 1. Selective right and left coronary angiogram 2. Left heart catheterization 3. Ultrasound-guided access of the right radial artery INDICATION: Cardiomyopathy COMPLICATION: None APPROACH: Right radial artery LEVEL OF SEDATION: Moderate with a sedation length of 8 minutes PROCEDURE DESCRIPTION: After obtaining an informed consent, the patient was brought to cardiac woods laborer. Local anesthesia was performed using lidocaine subcutaneously. The right radial artery was cannulated using Seldinger technique, the guidewire passed easily, following that we advanced a 5-Macanese sheath dilator assembly, the wire and dilator were removed and sheath was flushed. Following that, 2 mg of verapamil along with 5000 unit heparin were given. Selective right and left coronary angiogram using a 6-Macanese JR4 and JL 3.5 catheters. Following that we did left heart catheterization using 6-Macanese pigtail catheter. The procedure was completed there was no complication. SELECTIVE CORONARY ANGIOGRAM: The right coronary artery: Large caliber vessel and dominant vessel was mild disease only Left main: Has mild disease only The left circumflex: Large caliber vessel and nondominant vessel. The LCx is chronically occluded in the AV groove after an OM which appears to be normal The left anterior descending artery: Large caliber vessel was mild disease only and gives rises into the first and second diagonal branches both appeared to be angiographically normal HEMODYNAMICS: The LVEDP was 7 mmHg was no significant gradient across aortic valve CONCLUSION: 1. 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 Normal left-sided filling pressure POSTPROCEDURE MANAGEMENT: Medical treatment
[2023-09-13] MEDS ORDERED: SODIUM CHLORIDE 0.9% 1,000 ML IV SCH (13:30)
--- NOTE | 2023-09-13 14:52 | P.PN ---
Subjective Progress Note Date: 09/13/23 This is a pleasant 72-year-old patient follows with Dr. Aguilar. Patient presented yesterday with a heart racing broke out in a certain clammy. [place] anxious. Some shortness of breath. Presented to the ER. Found to be in atrial fibrillation with rapid ventricular rate. Was started on a Cardizem drip. This morning heart rate is better controlled in the 80s. Patient is feeling a bit better. Patient has some underlying wheezing and slight cough. Long-standing smoker. No chest pain. No fever no chills. Patient has known atrial fibrillation. On Coumadin. On Lopressor. 09/12/2023 Patient today continues to have intermittent episodes of chest pain sharp on the left side, no radiation and does spontaneously resolve. Then feels clammy and sweaty afterwards. In atrial fibrillation. Reports received from cardiac catheterization back in 2017 out of [facility] which reveals an EF 50% and minimal atherosclerotic disease. Echocardiogram f/u this admission reveals an EF of 35-40% with mild TR and small pericardial effusion. INR of 3.1 today. Troponin level negative x 3. Pending cardiology recommendations 09/13/2023 Patient underwent cardiac catheterization today which reveals chronic total occlusion of the small left circumflex in the AV groove and normal left sided filling pressures. Patient will be managed with medications. Denies any further episodes of chest pain or palpitations. Had on episode of feeling sweaty and clammy overnight. Heart rate remains controlled. Review of Systems Constitutional: Denied any fatigue denied any fever. Cardio vascular: Intermittent left sided chest pain, palpitations Gastrointestinal: Denied any nausea, vomiting, diarrhea Pulmonary: Denied any shortness of breath cough Neurologic denied any new focal deficits All inpatient medications were reviewed and appropriate changes in these medications as dictated in the interval history and assessment and plan. PHYSICAL EXAMINATION: GENERAL: The patient is alert and oriented x3, not in any acute distress. Well developed, well nourished. HEENT: Pupils are round and equally reacting to light. EOMI. No scleral icterus. No conjunctival pallor. Normocephalic, atraumatic. No pharyngeal erythema. No thyromegaly. CARDIOVASCULAR: S1 and S2 present. No murmurs, rubs, or gallops. PULMONARY: Chest is clear to auscultation, no wheezing or crackles. ABDOMEN: Soft, nontender, nondistended, normoactive bowel sounds. No palpable organomegaly. MUSCULOSKELETAL: No joint swelling or deformity. EXTREMITIES: No cyanosis, clubbing, or pedal edema. NEUROLOGICAL: Gross neurological examination did not reveal any focal deficits. SKIN: No rashes. Assessment -Persistent atrial fibrillation with RVR, off cardizem gtt and on oral lopressor -Coronary artery disease with chronic RCA occlusion will be managed medically -COPD Hx -Cardiomyopathy of unclear etiology -Chronic nicotine dependence, cigarette smoker -Coumadin monitoring -Essential hypertension -Depression -Primary osteoarthritis -Full code GI prophylaxis DVT prophylaxis Full Code Plan Continue on warfarin, daily PT/INR; patient was given vitamin K today in order to go for cardiac cathteterization INR now 1.8 Resume lisinopril and metoprolol was also increased Patient will be continued on statin therapy Smoking cessation reinforced and patient continues with nicotine patch Possible D/C home today or tomorrow pending cardiac clearance Patient needs to follow up with PCP and her known tax compliance officer out of [facility]. Recommending to Repeat INR in 2 days outpatient. The impression and plan of care has been dictated by Val Raymond, Nurse Practitioner as directed. Dr. Raz MD I have performed a history and physical examination and medical decision making of this patient, discussed the same with the dictator, and agree with the dictators assessment and plan as written, documented as a scribe. Based on total visit time, I have performed more than 50% of this visit. Objective - Vital Signs Vital signs: Vital Signs Temp 98.7 F 09/13/23 08:00 Pulse 78 09/13/23 08:00 Resp 17 09/13/23 08:00 BP 110/62 09/13/23 08:00 Pulse Ox 96 09/13/23 08:00 FiO2 Intake & Output 09/12/23 09/13/23 09/13/23 18:59 06:59 18:59 Intake Total 236 50 Balance 236 50 Intake: IV 50 Oral 236 Other: Voiding Method Toilet Toilet Toilet # Voids 5 1 4 # Bowel Movements 1 - Labs CBC & Chem 7: 09/13/23 06:25 09/13/23 06:25 Labs: Abnormal Lab Results - Last 24 Hours (Table) 09/13/23 09/13/23 09/13/23 Range/Units 06:25 06:25 06:25 MCV 104.3 H (80.0-100.0) fL PT 18.7 H (10.0-12.5) sec INR 1.9 H (<1.2) BUN 25 H (7-17) mg/dL 09/13/23 Range/Units 08:56 MCV (80.0-100.0) fL PT 18.2 H (10.0-12.5) sec INR 1.8 H (<1.2) BUN (7-17) mg/dL Assessment and Plan Time with Patient: Less than 30
[2023-09-13 18:40] VITALS: RESP 18
[2023-09-13] MEDS ORDERED: WARFARIN 3 MG TAB PO ONE (20:00)
[2023-09-13] MEDS: ATORVASTATIN 20 MG TAB PO SCH (20:09)
[2023-09-14 07:48] LABS: INR 1.4 (<1.2); Prothrombin Time 14.4 sec (10.0-12.5)
[2023-09-14] MEDS: NICOTINE 7MG/24HR PATCH TRANSDERM SCH (07:59)
[2023-09-14] MEDS: CITALOPRAM HYDROBROMIDE 20 MG TAB PO SCH (08:01)
[2023-09-14] MEDS: METOPROLOL TARTRATE 25 MG TAB PO SCH (08:01)
[2023-09-14 08:16] VITALS: BP 142/62; PULSE 74; TEMP 98.4
[2023-09-14] MEDS ORDERED: lisinopriL 10 MG TAB PO SCH (09:00)
--- NOTE | 2023-09-14 09:16 | P.PN ---
Subjective Progress Note Date: 09/14/23 Principal diagnosis: Atrial fibrillation/cardiomyopathy The patient is a pleasant 72-year-old female patient with a past medical history significant for permanent atrial fibrillation and chronic obstructive pulmonary disease as well as multiple comorbid conditions including recently diagnosed cardiomyopathy was admitted to the hospital with a chest discomfort and underwent a workup including an echo and that revealed cardiomyopathy which is new to the patient. September [id number] She was seen and evaluated this morning. She is asymptomatic at this point. The plan is to proceed with coronary angiogram to rule out severe underlying coronary artery disease. INR still pending. She was on Coumadin and the INR yesterday was intubated. We'll follow-up with the INR and procedures coronary angiogram if the INR is low. The examination is remarkable for irregular rhythm with a clear breathing sounds bilaterally and no lower extremities edema noted 09/14/2023 The patient was seen and evaluated this morning. She underwent heart catheterization yesterday and that revealed normal coronaries was normal left- sided filling pressure. She is feeling better this morning. No pain in the chest and no shortness of breath. The cardiomyopathy is nonischemic and likely related to atrial fibrillation. She is on anticoagulation and she is on beta lola and she is also on lisinopril. From the cardiovascular standpoint of view, the patient potentially can be discharged home in the next 12-24 hours. The examination is remarkable for irregular rhythm with a clear breathing sounds bilaterally and no lower extremity edema noted Assessment Permanent atrial fibrillation with controlled heart rate Nonischemic cardiomyopathy Plan Continue current medical regimen Continue maximize medical treatment for cardiomyopathy Possible discharge in the next 12-24 hour Objective - Vital Signs Vital signs: Vital Signs Temp 98.4 F 09/14/23 07:57 Pulse 74 09/14/23 07:57 Resp 18 09/14/23 07:57 BP 142/62 09/14/23 07:57 Pulse Ox 92 L 09/14/23 07:57 FiO2 Intake & Output 09/13/23 09/14/23 09/14/23 18:59 06:59 18:59 Intake Total 720 Balance 720 Intake: IV 50 Oral 670 Other: Voiding Method Toilet Toilet # Voids 4 2 - Labs CBC & Chem 7: 09/13/23 06:25 09/13/23 06:25 Labs: Abnormal Lab Results - Last 24 Hours (Table) 09/13/23 09/14/23 Range/Units 08:56 07:18 PT 18.2 H 14.4 H (10.0-12.5) sec INR 1.8 H 1.4 H (<1.2)
--- NOTE | 2023-09-14 17:55 | P.DS ---
Providers Date of admission: 09/11/23 02:55 Attending physician: Scar Hardy Consults: 09/11/23 02:55 Consult Physician Routine Consulting Provider: Billie Moser Consult Reason/Comments: A-fib with RVR Do you want consulting provider notified?: Yes Primary care physician: Beni Aguilar [facility] Course: Final Diagnosis -Persistent atrial fibrillation with RVR, off cardizem gtt and on oral lopressor -Coronary artery disease with chronic RCA occlusion will be managed medically -COPD Hx -Cardiomyopathy of unclear etiology -Chronic nicotine dependence, cigarette smoker -Coumadin monitoring -Essential hypertension -Depression -Primary osteoarthritis -Full code GI prophylaxis DVT prophylaxis Full Code Discharge Disposition Patient is stable for discharge home. Patient continues on warfarin INR 1.4 today recommending to continue same home dose and repeat INR in 2 to 3 days. Patient continues on lisinopril, metoprolol, statin therapy. Educated on the importance of smoking cessation. Patient to follow up with her known residential assistant out of [facility]. Hospital Course This is a pleasant 72-year-old patient follows with Dr. Aguilar. Patient presented with heart racing, shortness of breath and felt clammy. Presented to the ER. Found to be in atrial fibrillation with rapid ventricular rate. Was started on a Cardizem drip. Patient has some underlying wheezing and slight cough. Long-standing smoker. No chest pain. No fever no chills. Patient has known atrial fibrillation and is anticoagulated with coumadin. Reports received from cardiac catheterization back in 2017 out of [facility] which reveals an EF 50% and minimal atherosclerotic disease. Echocardiogram f/u this admission reveals an EF of 35-40% with mild TR and small pericardial effusion. INR of 3.1 today. Troponin level negative x 3. Patient underwent cardiac catheterization today which reveals chronic total occlusion of the small left circumflex in the AV groove and normal left sided filling pressures. Patient will be managed with medications. Denies any further episodes of chest pain or palpitations. Heart rate remains controlled and she will be discharged home with the above mentioned recommendations. Please see medication reconciliation for a list of current medication. Thank you for allowing us to participate in the care of this patient. The impression and plan of care has been dictated by Val Raymond, Nurse Practitioner as directed. Dr. Branden MD I have performed a history and physical examination and medical decision making of this patient, discussed the same with the dictator, and agree with the dictators assessment and plan as written, documented as a scribe. Based on total visit time, I have performed more than 100% of this visit. Patient Condition at Discharge: Stable Plan - Discharge Summary New Discharge Prescriptions: New Metoprolol Tartrate [Lopressor] 25 mg PO BID #60 tab Nitroglycerin Sl Tabs [Nitrostat] 0.4 mg SUBLINGUAL Q5M PRN #20 tab PRN Reason: Chest Pain Famotidine [Pepcid] 20 mg PO DAILY #30 tablet Continue lisinopriL [Prinivil] 10 mg PO DAILY Rosuvastatin Calcium 10 mg PO HS Warfarin Sodium 3.75 mg PO SUMOTUWEFRSA Albuterol Sulfate [Albuterol Sulfate Hfa] 1 - 2 puff PO RT-Q6H PRN PRN Reason: Shortness Of Breath Citalopram Hydrobromide [Citalopram HBr] 20 mg PO DAILY Discontinued Metoprolol Tartrate [Lopressor] 12.5 mg PO BID Discharge Medication List Albuterol Sulfate [Albuterol Sulfate Hfa] 1 - 2 puff PO RT-Q6H PRN 09/11/23 [History] Citalopram Hydrobromide [Citalopram HBr] 20 mg PO DAILY 09/11/23 [History] Rosuvastatin Calcium 10 mg PO HS 09/11/23 [History] Warfarin Sodium 3.75 mg PO SUMOTUWEFRSA 09/11/23 [History] lisinopriL [Prinivil] 10 mg PO DAILY 09/11/23 [History] Metoprolol Tartrate [Lopressor] 25 mg PO BID #60 tab 09/13/23 [Rx] Nitroglycerin Sl Tabs [Nitrostat] 0.4 mg SUBLINGUAL Q5M PRN #20 tab 09/13/23 [Rx] Famotidine [Pepcid] 20 mg PO DAILY #30 tablet 09/14/23 [Rx] Follow up Appointment(s)/Referral(s): Beni Aguilar MD [Primary Care Provider] - 1-2 days Ambulatory/Diagnostic Orders: Prothrombin Time INR [LAB.AMB] Time Frame: 3 Days, Location: None Selected Patient Instructions/Handouts: A-fib (Atrial Fibrillation) (DC) Activity/Diet/Wound Care/Special Instructions: Please follow up with your known residential assistant Continue on same warfarin dose repeat INR in 2 to 3 days Discharge Disposition: HOME SELF-CARE
[2023-09-14] MEDS ORDERED: WARFARIN 3 MG TAB PO ONE (18:00)
== END 2023-09-14 13:30 | disposition home or self-care (01) | DRG 287 ==
LOC: EC 00:49 → 3SCARD 02:55
PROVIDERS: ADMIT Hospitalist; ATTEND Hospitalist
PROC: B2111ZZ Fluoroscopy of Multiple Coronary Arteries using Low Osmolar Contrast (ICD-10-PCS; principal; 2023-09-13 07:30)
PROC: 4A023N7 Measurement of Cardiac Sampling and Pressure, Left Heart, Percutaneous Approach (ICD-10-PCS; 2023-09-13 07:30)
DX: I48.21 Permanent atrial fibrillation (principal); I31.39 Other pericardial effusion (noninflammatory); D68.32 Hemorrhagic disorder due to extrinsic circulating anticoagulants; I42.8 Other cardiomyopathies; I25.82 Chronic total occlusion of coronary artery; I10 Essential (primary) hypertension; J44.9 Chronic obstructive pulmonary disease, unspecified; F32.A Depression, unspecified; M19.91 Primary osteoarthritis, unspecified site; I07.1 Rheumatic tricuspid insufficiency; T45.515A Adverse effect of anticoagulants, initial encounter; I25.10 Atherosclerotic heart disease of native coronary artery without angina pectoris; F17.210 Nicotine dependence, cigarettes, uncomplicated; Z79.01 Long term (current) use of anticoagulants; Z79.899 Other long term (current) drug therapy; Z88.0 Allergy status to penicillin; Z98.61 Coronary angioplasty status
CPT/HCPCS: 36415; 71046; 76937; 80048; 80053; 81003; 83735; 84443; 84484; 85025; 85610; 85730; 93005; 93306; 93458; 94760; 96365; 96366; 99291